=== PATIENT | male | born 1960 | race Caucasian/White ===

== ENCOUNTER 2021-12-02 19:54 | Emergency (ER) | payer BC ==
[~2021-12-02] VITALS: Ht 175.3 cm; Wt 100.0 kg
[2021-12-02 20:01] VITALS: BP 154/90
== END 2021-12-02 21:31 | disposition left against medical advice (07) ==
LOC: ER 19:55
DX: U07.1 COVID-19 (principal); Z88.2 Allergy status to sulfonamides
CPT/HCPCS: 99281

== ENCOUNTER 2024-05-20 12:48 | Outpatient (CLI) | payer BC | END 2024-05-20 23:59 | disposition home or self-care (01) | LOC: MRI 12:48 | PROVIDERS: ATTEND Podiatrist Foot & Ankle Surgery | DX: M06.371 Rheumatoid nodule, right ankle and foot (principal); M79.89 Other specified soft tissue disorders; L98.499 Non-pressure chronic ulcer of skin of other sites with unspecified severity; D48.7 Neoplasm of uncertain behavior of other specified sites; M79.671 Pain in right foot; M79.672 Pain in left foot | CPT/HCPCS: 73718; 73721 ==